=== PATIENT | male | born 1945 | race Caucasian/White ===

== ENCOUNTER 2017-11-12 10:30 | Observation (INO) | payer MEDICARE ==
[2017-11-12 11:10] LABS: INR-International Normal Ratio 1.1; PTT 36.2 SEC (22.9-36.1); Prothrombin Time 14.5 SEC (12.0-14.7)
[2017-11-12 11:14] LABS: #Eosinphils 0.1 thou/uL (0.0-0.7); #Lymphocytes 1.9 thou/uL (1.20-3.40); #Monocytes 0.6 thou/uL (0.11-0.59); #Neutrophils 5.8 thou/uL (1.40-6.50); %Basophils 0.6 % (0.0-1.0); %Eosinophils 1.5 % (0.0-10.0); %Lymphocytes 22.8 % (21.0-51.0); %Monocytes 6.6 % (0.0-10.0); %Neutrophils 68.6 % (42.0-75.0); Hemoglobin 13.8 g/dL (14.0-18.0); Mean Corpuscular HGB CONC 32.7 g/dL (32.0-36.0); Mean Corpuscular Hemoglobin 31.1 pg (27.0-31.0); Mean Corpuscular Volume 95.2 fl (80.0-94.0); Mean Platelet Volume 7.5 fL (7.4-10.4); Platelet Count 155 thou/uL (130-400); RBC Distribution Width 12.5 % (11.5-14.5); Red Blood Cell (RBC) Count 4.42 mill/uL (4.70-6.10); White Blood Cell (WBC) Count 8.4 thou/uL (4.8-10.8)
--- NOTE | 2017-11-12 11:14 | CT ---
HEAD CT WITHOUT CONTRAST: DATE: 11/12/17. COMPARISON: 08/01/17. HISTORY: Altered mental status, history of dementia, inability to talk and to walk. TECHNIQUE: Serial axial CT imaging at 5 mm intervals from vertex through the skull base without contrast. FINDINGS: The imaged paranasal sinuses and mastoid air cells appear well aerated. There is no displaced calvar ial fracture, intracranial hemorrhage, midline shift, or mass effect seen. IMPRESSION: No intracranial hemorrhage. Results called to Dr. Rajput 10:39 a.m. 11/12/17. CODE CR POS: [facility]
[2017-11-12 11:20] LABS: CKMB 3.9 ng/mL (0-6.6); Troponin I Less than 0.010 ng/mL (< 0.028)
--- NOTE | 2017-11-12 11:25 | RAD ---
FRONTAL RADIOGRAPH OF CHEST PORTABLE SEMIUPRIGHT: Date: 11/12/17 COMPARISON: None. HISTORY: Altered mental status. FINDINGS: No pneumothorax, pleural fluid, focal consolidation, or alveolar edema. Heart and mediastinal contour s are grossly unremarkable. Mild pulmonary vascular congestion noted. IMPRESSION: No focal consolidation or alveolar edema. POS: [facility]
[2017-11-12 11:26] LABS: Bilirubin Negative (Negative); Blood, Urine Negative (Negative); Glucose, Urine (Dipstick) Negative (Negative); Leukocyte Negative (Negative); Nitrite Negative (Negative); Protein, Urine (Dipstick) Negative (Neg-Trace)
[2017-11-12 11:27] LABS: Clarity Clear (Clear)
[2017-11-12] MEDS ORDERED: Aspirin 300 MG Suppository ONE (12:07)
[2017-11-12 12:30] LABS: ALT (SGPT) 14 U/L (8-55); AST (SGOT) 28 U/L (5-34); Alkaline Phosphatase 91 U/L (40-150); Anion Gap 13 mmol/L (10-20); BUN (Urea Nitrogen) 15 mg/dL (8.4-25.7); Bilirubin, Total 1.6 mg/dL (0.2-1.2); Calc. Creatinine Clearance 0 mL/min (70-130); Calcium 9.3 mg/dL (7.8-10.44); Carbon Dioxide 25 mmol/L (23-31); Chloride 105 mmol/L (98-107); Estimated GFR-MDRD 73; Globulin 2.8 g/dL (2.4-3.5); Glucose 105 mg/dL (83-110); Potassium 4.3 mmol/L (3.5-5.1); Protein, Total 6.8 g/dL (5.8-8.1); Sodium 139 mmol/L (136-145)
[2017-11-12 14:35] LABS: Troponin I Less than 0.010 ng/mL (< 0.028)
[2017-11-12] MEDS ORDERED: hydrALAZINE 20 MG/ML VIAL SLOW IVP PRN (14:55)
[2017-11-12] MEDS ORDERED: Enalaprilat Dihydrate 1.25 MG/ML VIAL SLOW IVP PRN (14:55)
[2017-11-12 15:34] LABS: Cardiac Risk 3.8 (Less than 4.5)
[2017-11-12 15:48] VITALS: BMI 30.5
[2017-11-12] MEDS ORDERED: Acetaminophen 650 MG Suppository PR PRN (16:29)
[2017-11-12] MEDS ORDERED: Calcium Carbonate 500 MG ChewTAB PO PRN (16:29)
[2017-11-12] MEDS ORDERED: Bisacodyl 5 MG TAB PO PRN (16:29)
[2017-11-12] MEDS ORDERED: Senokot 8.6 MG TAB PO PRN (16:29)
[2017-11-12] MEDS ORDERED: Mag-Al 1200 mg/1200 mg/30 ML UDCUP PO PRN (16:29)
[2017-11-12] MEDS ORDERED: Ondansetron HCl/PF 4 MG/2 ML Vial IVP PRN (16:29)
[2017-11-12] MEDS ORDERED: Acetaminophen 325 MG TAB PO PRN (16:29)
[2017-11-12] MEDS ORDERED: Dextrose 50% Abboject 50 ML SYRINGE SLOW IVP PRN (16:32)
[2017-11-12] MEDS ORDERED: HumaLOG 300 UNITS/3 ML VIAL SC PRN ×2 (16:32)
[2017-11-12] MEDS ORDERED: Dextrose 5% in Water 1,000 ML IV PRN (16:32)
--- NOTE | 2017-11-12 17:18 | ULT ---
CAROTID ULTRASOUND WITH SCHILLING SCALE AND DOPPLER DUPLEX COLOR FLOW IMAGING SPECTRAL ANALYSIS PERFORMED: CLINICAL INDICATION: TIA. FINDINGS: There is mild degree of mild scattered atherosclerotic calcification of the carotid arteries. PEAK SYSTOLIC VELOCITY (CM/S): Right CCA 55 Left CCA 57 Right ICA 39 Left ICA 48 There is antegrade bilateral directional flow within the visualized vertebral arteries. IMPRESSION: 1. No hemodynamically significant stenosis of the right internal carotid artery. 2. No hemodynamically significant stenosis of the left internal carotid artery. POS: [facility]
[2017-11-12 17:39] LABS: Troponin I Less than 0.010 ng/mL (< 0.028)
--- NOTE | 2017-11-12 17:48 | MRI ---
BRAIN MRI NONCONTRAST: Date: 11/12/17 CLINICAL HISTORY: CVA, altered mental status. FINDINGS: There is prominent patient motion throughout the exam, which distorts anatomy and limits the assessme nt. There is no discrete evidence for acute territorial infarction. There is mild prominence of the v entricular system, along with mild global atrophy. Minimal chronic microvascular ischemic disease is present involving cerebral white matter. IMPRESSION: Exam is limited by patient motion. There is no evidence of acute infarction or mass effect. POS: [facility]
--- NOTE | 2017-11-12 20:01 | CON ---
DATE OF CONSULTATION: 11/12/2017 REFERRING PHYSICIAN: Hospitalist Service. Mr. Agudelo is a 72-year-old man who is a patient of Dr. Gordon's for management of Parkinson's joseluis ia complex. He has had symptoms dating back around 7-8 years. His physical status steadily deterior ated. He is getting around with a walker, but is unstable on his feet. His assists in almost a ll his daily activities. He has had intermittent hallucinations. He does not tolerate Parkinson med ication very well. He apparently has been having some restless sleep, talking constantly through the night. His decided to give him some Nyquil last night. When she tried to get him up this morn ing, he would not awaken. She checked his vital signs, which were normal. His blood sugar was 122. She called EMS and he was brought into the hospital. His lab work was all unremarkable. CT scan of the brain as well as a followup MRI of the brain were both unremarkable. His vital signs have been stable and he has been afebrile. He is awake and conversant now. PHYSICAL EXAMINATION: He is awake and appropriate. He has a masked facies. He follow commands appr opriately. He has a rest tremor in the left hand more than the right. His rapid alternating movemen ts are mildly slowed. His tone is a bit increased with some cogwheel rigidity. Gait was not tested. SUMMARY: Mr. Agudelo may have had a reaction to the Nyquil. He seems to be back to his baseline. I would suggest that he use Klonopin 0.5 mg at bedtime for his REM behavior activity. I will be happ y to follow up with him as an outpatient.
[2017-11-13 05:24] LABS: #Basophils 0.1 thou/uL (0.0-0.2); #Eosinphils 0.2 thou/uL (0.0-0.7); #Lymphocytes 1.9 thou/uL (1.20-3.40); #Monocytes 0.7 thou/uL (0.11-0.59); #Neutrophils 5.1 thou/uL (1.40-6.50); %Basophils 0.9 % (0.0-1.0); %Eosinophils 2.5 % (0.0-10.0); %Lymphocytes 23.5 % (21.0-51.0); %Monocytes 8.6 % (0.0-10.0); %Neutrophils 64.5 % (42.0-75.0); Hemoglobin 13.1 g/dL (14.0-18.0); Mean Corpuscular HGB CONC 33.6 g/dL (32.0-36.0); Mean Corpuscular Hemoglobin 31.6 pg (27.0-31.0); Mean Corpuscular Volume 93.9 fl (80.0-94.0); Mean Platelet Volume 7.3 fL (7.4-10.4); Platelet Count 147 thou/uL (130-400); RBC Distribution Width 12.3 % (11.5-14.5); Red Blood Cell (RBC) Count 4.15 mill/uL (4.70-6.10); White Blood Cell (WBC) Count 7.9 thou/uL (4.8-10.8)
[2017-11-13 06:10] LABS: Anion Gap 9 mmol/L (10-20); BUN (Urea Nitrogen) 17 mg/dL (8.4-25.7); Calc. Creatinine Clearance 110 mL/min (70-130); Calcium 9.2 mg/dL (7.8-10.44); Carbon Dioxide 28 mmol/L (23-31); Chloride 104 mmol/L (98-107); Estimated GFR-MDRD Greater than 90; Glucose 91 mg/dL (83-110); Potassium 3.9 mmol/L (3.5-5.1); Sodium 137 mmol/L (136-145)
--- NOTE | 2017-11-13 07:26 | HP ---
DATE OF ADMISSION: 11/12/2017 PRIMARY CARE PHYSICIAN: Dr. Gustavo Campbell, [place]. CHIEF COMPLAINT: Altered mental status. HISTORY OF PRESENT ILLNESS: Mr. Agudelo is a very pleasant male with past medical history of advanc ed Parkinson's disease as well as dementia and diabetes and hypothyroidism, who presented to the ER w ith the above-mentioned complaint. History is mainly obtained by his present in the room as the patient is very somnolent at this time but not able to provide any history. He also has advanced de mentia. According to his , he has been acting kind of normal up until this morning. She woke him up this morning, then he stopped speaking and kind of became less responsive for her. She called the EMS, tania hernandez activated to sepsis versus stroke alert. He was physically normal with normal vital signs, but he was brought to the emergency room for further evaluation. There are no recent illnesses according t o the . He has been hallucinating a lot and she feels that his dementia is getting worse. No re cent changes in medications have been made. She denies any fever, chills, or cough that she has noti stephy. Upon presentation to the emergency room, his blood pressure was high at 198/75. He was not able to t daisy his medications this morning because he was somnolent. Otherwise, his initial workup including s sandra chemistries, CT scan of the brain and a chest x-ray and . His EKG did show right bundle branch block, but his urinalysis and rest of the workup was normal. He is now being admitted for further workup and rule out CVA. According to the ER physician, he was qu ite unresponsive for her, but was maintaining his airway. Since coming upstairs on the floor, he is more awake and vivid and is following commands. PAST MEDICAL HISTORY: 1. Diabetes mellitus, type 2. 2. Hypertension. 3. Hypothyroidism. 4. Parkinson's disease. 5. Dyslipidemia. 6. Orthostatic hypotension. 7. Sleep apnea. 8. Dementia. 9. Chronic low back pain. 10. Chronic anemia. 11. Diabetic neuropathy. 12. History of TB, status post treatment. PAST SURGICAL HISTORY: Laminectomy. FAMILY HISTORY: Positive for coronary artery disease and diabetes. SOCIAL HISTORY: He is and lives with his . No history of drug, tobacco, or alcohol abus e. ALLERGIES: Include TORADOL. CURRENT HOME MEDICATIONS: Not updated as yet. According to the ER record, he takes the following me dications, Azilect 0.5 mg daily, fludrocortisone 0.1 mg daily, fluoxetine 20 mg daily, levothyroxine 137 mcg daily, midodrine 5 mg b.i.d., Namenda XR 28 mg daily, aspirin 81 mg daily. REVIEW OF SYSTEMS: It is unable to obtain at this time, because of patient's somnolence and some con fusion and advanced dementia, mainly. Overall, he says that he is "feeling okay." LABORATORY EXAMINATION: CBC: Hemoglobin 13.8, otherwise unremarkable. PT, PTT, INR within normal l imits. Serum chemistries unremarkable except a total bilirubin of 1.6, troponin less than 0.010 x2, CK-MB normal. Blood sugar 105. Lipid panel normal. Urinalysis shows some urobilinogen, otherwise u nremarkable. IMAGIN. Chest x-ray, by my review, has no evidence to suggest pleural effusion, edema, or infiltrate. 2. CT scan of the brain, by my review, is negative for any intracranial hemorrhage or acute infarcti on. PHYSICAL EXAMINATION: MOST RECENT VITAL SIGNS: Temperature 98, pulse of 59, respirations 16, saturating 100% on room air, blood pressure 161/76. GENERAL: No acute distress. He is awake, but falls back asleep easily, but easily awoken up as well . He is oriented to self and place at the very least. HEENT EXAMINATION: Mucous membranes is slightly dry. No oropharyngeal exudate or erythema. Head is normocephalic, atraumatic. Pupils equal and reactive to light and accommodation. Extraocular movem ent intact. NECK: Supple without any lymphadenopathy, JVD, or bruit. CHEST: Clear to auscultation without any wheezing, rales, or rhonchi. CARDIOVASCULAR: Rate and rhythm are regular. He has a loud 2/5 systolic murmur at the left sternal border. ABDOMEN: Soft, nontender, nondistended. EXTREMITIES: Free of any cyanosis, clubbing, or edema. NEUROLOGICAL EXAMINATION: Somewhat limited, because of advanced Parkinson's and dementia, but the pa brittany is able to follow simple commands. No obvious facial droop. Speech is not dysarthric. He is oriented to self and place. He is able to tell me that he is in the hospital and is able to tell me his full name. He is moving all 4 extremities against gravity by himself. So, muscle strength is at least 4/5 bilaterally. SKIN: Free of any rashes or bruises. They are still warm and dry. PSYCHIATRIC: Normal affect. IMPRESSION AND PLAN: 1. Altered mental status. No clear etiology is evident at this time. He has no metabolic abnormali ties and there are no sign and symptoms of sepsis as well. Transient ischemic attact will be ruled o ut. We will obtain a stroke team workup and go ahead and order a carotid Doppler as well as a transt horacic echocardiogram and MRI of the brain. We will also request consultation with Neurology for fu rther recommendations. The patient has received aspirin in the emergency room, and we will continue with full-dose aspirin and add statin at this time as well. His lipid panel is unremarkable. Furthe r management will depend upon the results of various studies. He will be monitored on the stroke [facility] with frequent neuro checks. 2. Uncontrolled hypertension. His blood pressure is under better control. We will restart his home medications once confirmed. Meanwhile, we will continue him on p.r.n. medications with a slightly r elaxed parameters to maintain cerebral perfusion pressure until CVA is ruled out. 3. Diabetes mellitus. We will start him on insulin sliding scale with frequent Accu-Cheks. 4. Advanced Parkinson's. He will continue to follow up with Dr. Gordon as an outpatient. Restart mena e medications once confirmed. 5. History of hypothyroidism. We will check a TSH and restart his home medications once the dose is confirmed. 6. History of Alzheimer dementia. I am not sure if he has Alzheimer's versus dementia associated wi th Parkinson's disease. Nevertheless, he will be on fall and aspiration precautions with a bed alarm . 7. Code status: DO NOT RESUSCITATE or intubate according to his as expressed by the patient lila araya. She has paperwork at home. 8. Deep venous thrombosis and gastrointestinal prophylaxis. 9. OT, PT, and speech therapist will be consulted as well. DISPOSITION: Mr. Agudelo is currently being admitted to stroke floor under observation status to ru le out AMS or any other causes of altered mental status. Further management will depend upon his cli nical course.
[2017-11-13] MEDS ORDERED: Fludrocortisone Acetate 0.1 MG TAB PO SCH (09:00)
[2017-11-13] MEDS ORDERED: Non-Formulary Item 1 EACH (Fluoxetine Hcl [Fluoxetine Hcl] 20 MG) PO SCH (09:00)
[2017-11-13] MEDS ORDERED: RASAGILINE MESYLATE PO SCH (09:00)
[2017-11-13] MEDS ORDERED: MIDODRINE HCL 5 MG PO SCH (09:00)
[2017-11-13] MEDS ORDERED: SAW PALMETTO 160 MG PO SCH (09:00)
[2017-11-13] MEDS ORDERED: Levothyroxine 175 MCG TAB PO SCH (09:00)
[2017-11-13] MEDS ORDERED: MEMANTINE HCL 28 MG PO SCH (09:00)
[2017-11-13] MEDS ORDERED: Midodrine HCl 5 MG TAB PO SCH (09:00)
[2017-11-13] MEDS ORDERED: Niacin 500 MG TAB PO SCH (09:45)
[2017-11-13] MEDS: Enoxaparin Sodium 40 MG/0.4 ML SYRINGE SC SCH (10:00)
[2017-11-13] MEDS: Aspirin 325 mg Enteric Coated Tablet PO SCH (10:00)
[2017-11-13] MEDS: FLUoxetine HCl 20 MG CAP PO SCH (10:00)
--- NOTE | 2017-11-13 13:45 | PDOC.PN ---
- Subjective Encounter Start Date: 11/13/17 Encounter Start Time: 13:43 Subjective: pt seen and examined. updated about all results -: feels well. no new complaints -: at baseline per - Objective Resuscitation Status: Resuscitation Status DNR:Do Not Resuscitate MAR Reviewed: Yes Vital Signs & Weight: Vital Signs (12 hours) Temp Pulse Pulse Pulse Pulse Resp BP 11/13/17 12:00 98 F 62 16 11/13/17 10:26 59 L 77 67 143/86 H 11/13/17 09:24 98.8 F 65 16 11/13/17 08:59 98.8 F 65 16 11/13/17 03:58 97.5 F L 86 16 BP BP BP Pulse Ox 11/13/17 12:00 159/85 H 99 11/13/17 10:26 105/59 L 155/75 H 11/13/17 09:24 137/67 95 11/13/17 08:59 11/13/17 03:58 142/73 H 96 Weight Weight 213 lb I&O: 11/12/17 11/13/17 11/14/17 06:59 06:59 06:59 Intake Total 300 Balance 300 Result Diagrams: 11/13/17 05:12 11/13/17 05:12 Additional Labs: Accuchecks 11/13/17 11/12/17 11/12/17 05:13 21:58 17:35 POC Glucose 89 117 H 89 Radiology Reviewed by me: Yes (MRI-no ac infarct) EKG Reviewed by me: Yes (NSR on tele) Phys Exam - Physical Examination Constitutional: NAD sitting up in bed,awake, HEENT: PERRLA, moist MMs, sclera anicteric, oral pharynx no lesions Neck: no nodes, no JVD, supple, full ROM Respiratory: no wheezing, no rales, no rhonchi, clear to auscultation bilateral Cardiovascular: RRR, no significant murmur, no rub Gastrointestinal: soft, non-tender, no distention, positive bowel sounds Musculoskeletal: no edema, pulses present Neurological: non-focal, moves all 4 limbs Psychiatric: normal affect orineted to self and place Skin: no rash Dx/Plan (1) Altered mental status Code(s): R41.82 - ALTERED MENTAL STATUS, UNSPECIFIED Status: Acute Comment: josé TIA (2) TIA (transient ischemic attack) Status: Acute (3) Alzheimer disease Code(s): G30.9 - ALZHEIMER'S DISEASE, UNSPECIFIED; F02.80 - DEMENTIA IN OTH DISEASES CLASSD ELSWHR W/O BEHAVRL DISTURB Status: Chronic (4) Diabetes Mellitus Type 2 in Nonobese Code(s): E11.9 - TYPE 2 DIABETES MELLITUS WITHOUT COMPLICATIONS Status: Chronic (5) Hypothyroidism Code(s): E03.9 - HYPOTHYROIDISM, UNSPECIFIED Status: Chronic (6) Labile hypertension Code(s): I10 - ESSENTIAL (PRIMARY) HYPERTENSION Status: Chronic (7) Parkinson's disease Code(s): G20 - PARKINSON'S DISEASE Status: Chronic - Plan PT/OT, DVT proph w/SCDs increase ASA to 325 daily.pt intolerant to Statin. -: cont home meds as below -: BP higher.Stop Florinef -: PT RECOMMENDED REHAB.ORDERS PLACED.DC DELAYED d/t THIS -: Cleared by [facility] for regular diet.DC IVF * .add qhs klonopin per neuro recs Review of Systems - Review of Systems Other: unable to obtain due to advanced dementia - Medications/Allergies Allergies/Adverse Reactions: Allergies Allergy/AdvReac Type Severity Reaction Status Date / Time ketorolac tromethamine Allergy Anxiety Verified 07/14/14 10:47 [From Toradol] fentanyl AdvReac Verified 07/26/14 18:07 Medications: Current Medications Acetaminophen (Tylenol) 650 mg PO Q4H PRN PRN Reason: Headache/Fever or Pain Acetaminophen (Tylenol) 650 mg [place] Q4H PRN PRN Reason: Headache/Fever or Pain Al Hydroxide/Mg Hydroxide (Maalox) 30 ml PO Q6H PRN PRN Reason: Heartburn or Indigestion Aspirin (Ecotrin) 325 mg PO DAILY [facility] Last Admin: 11/13/17 10:00 Dose: 325 mg Bisacodyl (Dulcolax) 10 mg PO DAILYPRN PRN PRN Reason: Constipation Calcium Carbonate (Tums) 1,000 mg PO Q4H PRN PRN Reason: Heartburn or Indigestion Dextrose/Water (Dextrose 50%) 25 gm SLOW IVP PRN PRN PRN Reason: Hypoglycemia Enalaprilat (Vasotec) 1.25 mg SLOW IVP Q6H PRN PRN Reason: SBP>170 Enoxaparin Sodium (Lovenox) 40 mg SC 0900 [facility] Last Admin: 11/13/17 10:00 Dose: 40 mg Fluoxetine HCl (Prozac) 20 mg PO DAILY [facility] Last Admin: 11/13/17 10:00 Dose: 20 mg Glucagon (Glucagon) 1 mg IM PRN PRN PRN Reason: Hypoglycemia Hydralazine HCl (Apresoline) 10 mg SLOW IVP Q4H PRN PRN Reason: SBP>170 Dextrose/Water (D5w) 1,000 mls @ 0 mls/hr IV .Q0M PRN; As Directed PRN Reason: Hypoglycemia Insulin Human Lispro (Humalog) 0 units SC .MODERATE SLIDING SC PRN PRN Reason: Moderate Correctional Scale Insulin Human Lispro (Humalog) 0 units SC .BEDTIME SLIDING SC PRN PRN Reason: Bedtime Correctional Scale Levothyroxine Sodium (Synthroid) 112 mcg PO 0600 [facility] Levothyroxine Sodium (Synthroid) 25 mcg PO 0600 [facility] Memantine (Namenda) 10 mg PO BID [facility] Midodrine (Proamatine) 5 mg PO BID [facility] Last Admin: 11/13/17 10:00 Dose: 5 mg Niacin (Niacin) 250 mg PO DAILY [facility] Ondansetron HCl (Zofran) 4 mg IVP Q6H PRN PRN Reason: Nausea/Vomiting [[place]] 160 (Mg)) 0 each PO DAILY [facility] Rasagiline Mesylate ([Azilect] 1 Tab) 0 each PO DAILY [facility] Senna (Senokot) 2 tab PO HSPRN PRN PRN Reason: Constipation Sodium Chloride (Flush - Normal Saline) 10 ml IVF Q12HR [facility] Sodium Chloride (Flush - Normal Saline) 10 ml IVF PRN PRN PRN Reason: Saline Flush
[2017-11-14] MEDS: Levothyroxine Sodium 25 MCG TAB PO SCH (05:13)
[2017-11-14] MEDS: Levothyroxine Sodium 112 MCG TAB PO SCH (05:14)
[2017-11-14] MEDS: Enoxaparin Sodium 40 MG/0.4 ML SYRINGE SC SCH (09:45)
[2017-11-14] MEDS: Aspirin 325 mg Enteric Coated Tablet PO SCH (09:46)
[2017-11-14] MEDS: Amlodipine 5 MG TAB PO SCH (09:46)
[2017-11-14] MEDS: Niacin 500 MG TAB PO SCH (09:46)
[2017-11-14] MEDS: FLUoxetine HCl 20 MG CAP PO SCH (09:47)
--- NOTE | 2017-11-14 14:52 | PDOC.PN ---
- Subjective Encounter Start Date: 11/14/17 Encounter Start Time: 14:50 - Objective Resuscitation Status: Resuscitation Status DNR:Do Not Resuscitate Vital Signs & Weight: Vital Signs (12 hours) Temp Pulse Pulse Resp BP BP Pulse Ox 11/14/17 11:51 98.7 F 71 18 112/57 L 98 11/14/17 09:46 63 11/14/17 08:45 98.9 F 63 18 11/14/17 08:40 66 151/68 H 11/14/17 07:29 98.9 F 63 18 156/75 H 98 11/14/17 04:00 97.8 F 61 18 154/71 H 97 Weight Admit Weight 213 lb Weight 213 lb I&O: 11/13/17 11/14/17 11/15/17 06:59 06:59 06:59 Intake Total 300 Balance 300 Result Diagrams: 11/13/17 05:12 11/13/17 05:12 Additional Labs: Accuchecks 11/14/17 11/14/17 11/13/17 10:51 05:21 20:32 POC Glucose 146 H 98 153 H 11/13/17 16:35 POC Glucose 111 H Phys Exam - Physical Examination Constitutional: NAD answers some questions appropriately HEENT: PERRLA, moist MMs, sclera anicteric, oral pharynx no lesions Neck: no nodes, no JVD, supple, full ROM Respiratory: no wheezing, no rales, no rhonchi, clear to auscultation bilateral Cardiovascular: RRR, no significant murmur, no rub Gastrointestinal: soft, non-tender, no distention, positive bowel sounds Musculoskeletal: no edema, pulses present Neurological: non-focal, normal sensation, moves all 4 limbs Psychiatric: normal affect Skin: no rash Dx/Plan (1) TIA (transient ischemic attack) Status: Acute (2) Altered mental status Code(s): R41.82 - ALTERED MENTAL STATUS, UNSPECIFIED Status: Resolved Comment: josé TIA (3) Alzheimer disease Code(s): G30.9 - ALZHEIMER'S DISEASE, UNSPECIFIED; F02.80 - DEMENTIA IN OTH DISEASES CLASSD ELSWHR W/O BEHAVRL DISTURB Status: Chronic (4) Diabetes Mellitus Type 2 in Nonobese Code(s): E11.9 - TYPE 2 DIABETES MELLITUS WITHOUT COMPLICATIONS Status: Chronic (5) Hypothyroidism Code(s): E03.9 - HYPOTHYROIDISM, UNSPECIFIED Status: Chronic (6) Labile hypertension Code(s): I10 - ESSENTIAL (PRIMARY) HYPERTENSION Status: Chronic (7) Parkinson's disease Code(s): G20 - PARKINSON'S DISEASE Status: Chronic - Plan DVT proph w/SCDs BP high.stop midodrine.Florinef stopped yesterday -: add low dose amlodipine and titrate as needed -: cont ASA .statin intolerant. -: awaiting placement.HD stable -: add hs klonopin for hallucinations and wakefullness at night * . Review of Systems - Review of Systems Constitutional: negative: fever, chills, sweats, weakness, malaise, other Respiratory: negative: Cough, Dry, Shortness of Breath, Hemoptysis, SOB with Excertion, Pleuritic Pain, Sputum, Wheezing Cardiovascular: negative: chest pain, palpitations, orthopnea, paroxysmal nocturnal dyspnea, edema, light headedness, other Gastrointestinal: negative: Nausea, Vomiting, Abdominal Pain, Diarrhea, Constipation, Melena, Hematochezia, Other Genitourinary: negative: Dysuria, Frequency, Incontinence, Hematuria, Retention , Other Other: limited ROS due to dementia - Medications/Allergies Allergies/Adverse Reactions: Allergies Allergy/AdvReac Type Severity Reaction Status Date / Time ketorolac tromethamine Allergy Anxiety Verified 07/14/14 10:47 [From Toradol] fentanyl AdvReac Verified 07/26/14 18:07 Medications: Current Medications Acetaminophen (Tylenol) 650 mg PO Q4H PRN PRN Reason: Headache/Fever or Pain Acetaminophen (Tylenol) 650 mg IN Q4H PRN PRN Reason: Headache/Fever or Pain Al Hydroxide/Mg Hydroxide (Maalox) 30 ml PO Q6H PRN PRN Reason: Heartburn or Indigestion Amlodipine Besylate (Norvasc) 2.5 mg PO DAILY [facility] Last Admin: 11/14/17 09:46 Dose: 2.5 mg Aspirin (Ecotrin) 325 mg PO DAILY [facility] Last Admin: 11/14/17 09:46 Dose: 325 mg Bisacodyl (Dulcolax) 10 mg PO DAILYPRN PRN PRN Reason: Constipation Calcium Carbonate (Tums) 1,000 mg PO Q4H PRN PRN Reason: Heartburn or Indigestion Dextrose/Water (Dextrose 50%) 25 gm SLOW IVP PRN PRN PRN Reason: Hypoglycemia Enalaprilat (Vasotec) 1.25 mg SLOW IVP Q6H PRN PRN Reason: SBP>170 Enoxaparin Sodium (Lovenox) 40 mg SC 0900 [facility] Last Admin: 11/14/17 09:45 Dose: 40 mg Fluoxetine HCl (Prozac) 20 mg PO DAILY [facility] Last Admin: 11/14/17 09:47 Dose: 20 mg Glucagon (Glucagon) 1 mg IM PRN PRN PRN Reason: Hypoglycemia Hydralazine HCl (Apresoline) 10 mg SLOW IVP Q4H PRN PRN Reason: SBP>170 Dextrose/Water (D5w) 1,000 mls @ 0 mls/hr IV .Q0M PRN; As Directed PRN Reason: Hypoglycemia Insulin Human Lispro (Humalog) 0 units SC .MODERATE SLIDING SC PRN PRN Reason: Moderate Correctional Scale Insulin Human Lispro (Humalog) 0 units SC .BEDTIME SLIDING SC PRN PRN Reason: Bedtime Correctional Scale Levothyroxine Sodium (Synthroid) 112 mcg PO 0600 [facility] Last Admin: 11/14/17 05:14 Dose: 112 mcg Levothyroxine Sodium (Synthroid) 25 mcg PO 0600 [facility] Last Admin: 11/14/17 05:13 Dose: 25 mcg Memantine (Namenda) 10 mg PO BID [facility] Last Admin: 11/14/17 09:46 Dose: 10 mg Niacin (Niacin) 250 mg PO DAILY [facility] Last Admin: 11/14/17 09:46 Dose: 250 mg Ondansetron HCl (Zofran) 4 mg IVP Q6H PRN PRN Reason: Nausea/Vomiting [Saw [place]] 160 (Mg)) 0 each PO DAILY [facility] Rasagiline Mesylate ([Azilect] 1 Tab) 0 each PO DAILY [facility] Senna (Senokot) 2 tab PO HSPRN PRN PRN Reason: Constipation Sodium Chloride (Flush - Normal Saline) 10 ml IVF Q12HR [facility] Last Admin: 11/14/17 09:47 Dose: 10 ml Sodium Chloride (Flush - Normal Saline) 10 ml IVF PRN PRN PRN Reason: Saline Flush
[2017-11-14] MEDS: clonazePAM 0.5 MG TAB PO SCH (21:13)
[2017-11-15] MEDS: Levothyroxine Sodium 25 MCG TAB PO SCH (06:05)
[2017-11-15] MEDS: Levothyroxine Sodium 112 MCG TAB PO SCH (06:05)
--- NOTE | 2017-11-15 07:20 | PDOC.PN ---
- Subjective Encounter Start Date: 11/15/17 Encounter Start Time: 08:45 Subjective: Patient somnolent this morning, not communicative. No events overnight. - Objective Resuscitation Status: Resuscitation Status DNR:Do Not Resuscitate MAR Reviewed: Yes Vital Signs & Weight: Vital Signs (12 hours) Temp Pulse Resp BP Pulse Ox 11/15/17 04:28 98.2 F 62 20 118/55 L 98 11/15/17 00:12 97.8 F 64 14 106/53 L 95 11/14/17 21:02 98.5 F 70 18 118/78 98 Weight Admit Weight 213 lb Weight 213 lb Result Diagrams: 11/13/17 05:12 11/13/17 05:12 Additional Labs: Accuchecks 11/15/17 11/14/17 11/14/17 04:37 22:15 16:53 POC Glucose 107 111 H 110 11/14/17 10:51 POC Glucose 146 H Phys Exam - Physical Examination Constitutional: NAD HEENT: moist MMs Respiratory: no wheezing, no rales, no rhonchi Cardiovascular: RRR 3/6 holosystolic murmur Gastrointestinal: soft, non-tender, positive bowel sounds Neurological: non-focal Deviation from normal: somnolent, will make grunting noises on stimulation but won't open eyes Dx/Plan (1) TIA (transient ischemic attack) Status: Acute (2) Altered mental status Code(s): R41.82 - ALTERED MENTAL STATUS, UNSPECIFIED Status: Resolved Comment: josé TIA, back to baseline dementia per , more sleepy this AM, will need to see how he does over the day (3) Alzheimer disease Code(s): G30.9 - ALZHEIMER'S DISEASE, UNSPECIFIED; F02.80 - DEMENTIA IN OTH DISEASES CLASSD ELSWHR W/O BEHAVRL DISTURB Status: Chronic (4) Diabetes Mellitus Type 2 in Nonobese Code(s): E11.9 - TYPE 2 DIABETES MELLITUS WITHOUT COMPLICATIONS Status: Chronic (5) Hypothyroidism Code(s): E03.9 - HYPOTHYROIDISM, UNSPECIFIED Status: Chronic (6) Labile hypertension Code(s): I10 - ESSENTIAL (PRIMARY) HYPERTENSION Status: Chronic Comment: decent control (7) Parkinson's disease Code(s): G20 - PARKINSON'S DISEASE Status: Chronic - Plan cont current plan of care, PT/OT to rehab when approved, if denied home vs. SNF * . - Discharge Day Encounter end time: 09:00
[2017-11-15] MEDS: Enoxaparin Sodium 40 MG/0.4 ML SYRINGE SC SCH (09:36)
[2017-11-15 12:34] LABS: #Basophils 0.1 thou/uL (0.0-0.2); #Eosinphils 0.1 thou/uL (0.0-0.7); #Lymphocytes 1.5 thou/uL (1.20-3.40); #Monocytes 0.8 thou/uL (0.11-0.59); #Neutrophils 7.5 thou/uL (1.40-6.50); %Basophils 0.5 % (0.0-1.0); %Eosinophils 1.1 % (0.0-10.0); %Lymphocytes 15.1 % (21.0-51.0); %Monocytes 8.4 % (0.0-10.0); %Neutrophils 74.9 % (42.0-75.0); Hemoglobin 13.4 g/dL (14.0-18.0); Mean Corpuscular HGB CONC 33.7 g/dL (32.0-36.0); Mean Corpuscular Hemoglobin 31.9 pg (27.0-31.0); Mean Corpuscular Volume 94.6 fl (80.0-94.0); Mean Platelet Volume 7.2 fL (7.4-10.4); Platelet Count 141 thou/uL (130-400); RBC Distribution Width 12.6 % (11.5-14.5); Red Blood Cell (RBC) Count 4.19 mill/uL (4.70-6.10)
--- NOTE | 2017-11-15 12:50 | RAD ---
PORTABLE CHEST: Date: 11-15-17 Provided Clinical History: Altered mental status. Comparison: 11-12-17 FINDINGS: Cardiac and mediastinal silhouette is unchanged in appearance. Lungs appear clear. No pleural fluid o r pneumothorax apparent. IMPRESSION: No evidence for an acute cardiopulmonary process. POS: [facility]
[2017-11-15 12:55] LABS: Bilirubin Negative (Negative); Blood, Urine Large (Negative); Clarity CLOUDY (Clear); Glucose, Urine (Dipstick) Negative (Negative); Leukocyte Large (Negative); Nitrite Positive (Negative); Protein, Urine (Dipstick) 30 mg/dL (Neg-Trace); Specific Gravity, Urine 1.021 (1.002-1.036); pH, Urine 6.5 (5.0-9.0)
[2017-11-15 12:56] LABS: Anion Gap 10 mmol/L (10-20); BUN (Urea Nitrogen) 21 mg/dL (8.4-25.7); Calc. Creatinine Clearance 92 mL/min (70-130); Calcium 9.2 mg/dL (7.8-10.44); Carbon Dioxide 26 mmol/L (23-31); Chloride 104 mmol/L (98-107); Estimated GFR-MDRD 74; Glucose 97 mg/dL (83-110); Sodium 136 mmol/L (136-145)
[2017-11-15 12:57] LABS: Bacteria/HPF 4+ HPF (None Seen); Hyaline Casts/LPF 4-6 HYALINE CAST LPF (0-3 Hyaline); Pathc Cast-AUWi Flag 1.54 (0-2.49); RBC/HPF GREATER THAN 50-TNTC HPF (0-3); Squamous Epithelial 0-3 HPF (0-3)
[2017-11-15] MEDS: Amlodipine 5 MG TAB PO SCH (13:25)
[2017-11-15] MEDS: Aspirin 325 mg Enteric Coated Tablet PO SCH (13:25)
[2017-11-15] MEDS: FLUoxetine HCl 20 MG CAP PO SCH (13:25)
[2017-11-15] MEDS: Niacin 500 MG TAB PO SCH (13:26)
[2017-11-15] MEDS: Ciprofloxacin 500 MG TAB PO SCH (20:03)
[2017-11-15] MEDS: clonazePAM 0.5 MG TAB PO SCH (20:04)
--- NOTE | 2017-11-15 22:17 | EKG ---
Test Reason : Blood Pressure : / mmHG Vent. Rate : 062 BPM Atrial Rate : 062 BPM P-R Int : 136 ms QRS Dur : 116 ms QT Int : 464 ms P-R-T Axes : 030 -54 041 degrees QTc Int : 470 ms Normal sinus rhythm Left anterior fascicular block Left ventricular hypertrophy with QRS widening Abnormal ECG When compared with ECG of 12-NOV-2017 10:48, (Unconfirmed) Incomplete right bundle branch block is no longer Present Confirmed by GABINO FREEMAN, SLove ([id number]) on 11/15/2017 10:17:32 PM Referred By: CARLIE Confirmed By:DR. Jose LLOYD MD
[2017-11-16 05:08] LABS: #Eosinphils 0.1 thou/uL (0.0-0.7); #Lymphocytes 1.6 thou/uL (1.20-3.40); #Monocytes 1.1 thou/uL (0.11-0.59); #Neutrophils 9.3 thou/uL (1.40-6.50); %Basophils 0.4 % (0.0-1.0); %Eosinophils 1.2 % (0.0-10.0); %Lymphocytes 12.8 % (21.0-51.0); %Monocytes 9.4 % (0.0-10.0); %Neutrophils 76.2 % (42.0-75.0); Hemoglobin 12.9 g/dL (14.0-18.0); Mean Corpuscular HGB CONC 33.7 g/dL (32.0-36.0); Mean Corpuscular Hemoglobin 31.5 pg (27.0-31.0); Mean Corpuscular Volume 93.7 fl (80.0-94.0); Mean Platelet Volume 7.6 fL (7.4-10.4); Platelet Count 131 thou/uL (130-400); RBC Distribution Width 12.2 % (11.5-14.5); White Blood Cell (WBC) Count 12.2 thou/uL (4.8-10.8)
[2017-11-16 05:30] LABS: Anion Gap 9 mmol/L (10-20); BUN (Urea Nitrogen) 19 mg/dL (8.4-25.7); Calc. Creatinine Clearance 109 mL/min (70-130); Calcium 9.3 mg/dL (7.8-10.44); Carbon Dioxide 29 mmol/L (23-31); Chloride 103 mmol/L (98-107); Estimated GFR-MDRD 90; Glucose 99 mg/dL (83-110); Potassium 3.9 mmol/L (3.5-5.1); Sodium 137 mmol/L (136-145)
[2017-11-16] MEDS: Levothyroxine Sodium 25 MCG TAB PO SCH (06:06)
[2017-11-16] MEDS: Ciprofloxacin 500 MG TAB PO SCH ×2 (06:06→20:43)
[2017-11-16] MEDS: Levothyroxine Sodium 112 MCG TAB PO SCH (06:06)
--- NOTE | 2017-11-16 06:54 | PDOC.PN ---
- Subjective Encounter Start Date: 11/16/17 Encounter Start Time: 08:45 Subjective: A bit more awake today, but still very sleepy. Reports chronic low back -: pain. No other complaints. - Objective Resuscitation Status: Resuscitation Status DNR:Do Not Resuscitate MAR Reviewed: Yes Vital Signs & Weight: Vital Signs (12 hours) Temp Pulse Resp BP Pulse Ox 11/16/17 03:26 99.1 F 64 18 129/66 95 11/15/17 23:07 98.5 F 64 16 123/63 97 11/15/17 20:01 99.1 F 70 18 11/15/17 19:16 99.1 F 70 18 147/70 H 93 L Weight Admit Weight 213 lb Weight 213 lb Result Diagrams: 11/16/17 04:43 11/16/17 04:43 Additional Labs: Accuchecks 11/16/17 11/15/17 11/15/17 05:54 20:31 16:36 POC Glucose 97 121 H 126 H 11/15/17 10:50 POC Glucose 94 Phys Exam - Physical Examination Constitutional: NAD HEENT: moist MMs Respiratory: no wheezing, no rales, no rhonchi Cardiovascular: RRR 3/6 ANDI Gastrointestinal: soft, non-tender, positive bowel sounds Neurological: non-focal, moves all 4 limbs Psychiatric: normal affect Deviation from normal: Not oriented Dx/Plan (1) Altered mental status Code(s): R41.82 - ALTERED MENTAL STATUS, UNSPECIFIED Status: Acute Comment: Fluctuating, declining over the past few months, likely progressive dementia exacerbated by a UTI (2) TIA (transient ischemic attack) Status: Resolved (3) Alzheimer disease Code(s): G30.9 - ALZHEIMER'S DISEASE, UNSPECIFIED; F02.80 - DEMENTIA IN OTH DISEASES CLASSD ELSWHR W/O BEHAVRL DISTURB Status: Chronic (4) Diabetes Mellitus Type 2 in Nonobese Code(s): E11.9 - TYPE 2 DIABETES MELLITUS WITHOUT COMPLICATIONS Status: Chronic (5) Hypothyroidism Code(s): E03.9 - HYPOTHYROIDISM, UNSPECIFIED Status: Chronic (6) Labile hypertension Code(s): I10 - ESSENTIAL (PRIMARY) HYPERTENSION Status: Chronic Comment: decent control (7) Parkinson's disease Code(s): G20 - PARKINSON'S DISEASE Status: Chronic (8) UTI (urinary tract infection) Status: Acute Comment: UA now with UTI and leukocytosis in blood, developed since admit, patient in diaper no gaitan. Started Cipro and culture pending. Stable for d/c to SNF. (9) Fall Code(s): W19.XXXA - UNSPECIFIED FALL, INITIAL ENCOUNTER Status: Acute Comment: Fell a couple times in past 2 months and not walking since, never had workup, will check X-ray hips and L-spine - Plan cont current plan of care, continue antibiotics, PT/OT D/C to SNF, realizes that she will need to arrange terminal [facility] care -: after that * . - Discharge Day Encounter end time: 09:00
[2017-11-16] MEDS: Enoxaparin Sodium 40 MG/0.4 ML SYRINGE SC SCH (08:33)
[2017-11-16] MEDS: Aspirin 325 mg Enteric Coated Tablet PO SCH (08:33)
[2017-11-16] MEDS: Niacin 500 MG TAB PO SCH (08:33)
[2017-11-16] MEDS: Amlodipine 5 MG TAB PO SCH (08:34)
[2017-11-16] MEDS: FLUoxetine HCl 20 MG CAP PO SCH (08:34)
--- NOTE | 2017-11-16 11:23 | RAD ---
LUMBAR SPINE 3 VIEWS: COMPARISON: 09/14/14. HISTORY: The patient fell. Difficulty walking. FINDINGS: Stable postsurgical changes with fusion at L5-S1. Limited evaluation of the lumbosacral junction due to poor penetration. There is a prosthesis of the L5-S1 level. There appears to be anterolisthesis of L5 upon S1. There are 5 lumbar-type vertebral bodies. No obvious acute fracture. IMPRESSION: Anterolisthesis of L5 upon S1 which cannot be adequately assessed due to poor penetration. Better in terrogation with MRI to assess the overall degree of central canal stenosis. POS: [facility]
--- NOTE | 2017-11-16 11:25 | RAD ---
RIGHT HIP 2 VIEWS: HISTORY: Fall. The patient is no longer walking. COMPARISON: None. FINDINGS: Mild loss of joint space height. Contour of the femoral head is maintained. No fracture. IMPRESSION: No fracture. POS: [facility]
--- NOTE | 2017-11-16 11:26 | RAD ---
FRONTAL RADIOGRAPH OF PELVIS: DATE: 11/16/17. COMPARISON: None. HISTORY: Fall. FINDINGS: Postoperative hardware is seen overlying the lumbosacral junction. There is no widening of the pubic symphysis or the sacroiliac joints. The femoral heads project normally over their respective acetab ulum. No displaced pelvic fracture. Degenerative change of both hips noted. IMPRESSION: No displaced fracture is seen. POS: [facility]
--- NOTE | 2017-11-16 11:27 | RAD ---
TWO VIEWS LEFT HIP: HISTORY: Fall. Pain. The patient is no longer walking. COMPARISON: None. FINDINGS: Mild loss of joint space height. Contour of the femoral head is maintained. No fracture. IMPRESSION: No fracture with regard to the left hip. POS: [facility]
[2017-11-16] MEDS: clonazePAM 0.5 MG TAB PO SCH (20:43)
[2017-11-17] MEDS: Ciprofloxacin 500 MG TAB PO SCH ×2 (04:54→20:53)
[2017-11-17] MEDS: Levothyroxine Sodium 112 MCG TAB PO SCH (04:54)
[2017-11-17] MEDS: Levothyroxine Sodium 25 MCG TAB PO SCH (04:54)
[2017-11-17] MEDS: FLUoxetine HCl 20 MG CAP PO SCH (09:21)
[2017-11-17] MEDS: Amlodipine 5 MG TAB PO SCH (09:21)
[2017-11-17] MEDS: Aspirin 325 mg Enteric Coated Tablet PO SCH (09:21)
[2017-11-17] MEDS: Niacin 500 MG TAB PO SCH (09:23)
[2017-11-17] MEDS: Enoxaparin Sodium 40 MG/0.4 ML SYRINGE SC SCH (09:23)
--- NOTE | 2017-11-17 10:39 | PDOC.PN ---
- Subjective Encounter Start Date: 11/17/17 Encounter Start Time: 07:00 -: old records requested/rev Patient seen and examined for altered mental status. pt is sleepy. No overnight events - Objective Resuscitation Status: Resuscitation Status DNR:Do Not Resuscitate MAR Reviewed: Yes Vital Signs & Weight: Vital Signs (12 hours) Temp Pulse Resp BP BP Pulse Ox 11/17/17 09:21 66 110/55 L 11/17/17 07:00 98.7 F 66 20 110/55 L 96 11/17/17 03:00 98.7 F 70 18 119/54 L 97 11/16/17 23:00 98.6 F 87 20 129/58 L 98 Weight Admit Weight 213 lb Weight 213 lb I&O: 11/16/17 11/17/17 11/18/17 06:59 06:59 06:59 Intake Total 300 Balance 300 Result Diagrams: 11/16/17 04:43 11/16/17 04:43 Additional Labs: Accuchecks 11/17/17 11/16/17 11/16/17 05:58 20:30 16:11 POC Glucose 105 111 H 116 H 11/16/17 10:59 POC Glucose 111 H EKG Reviewed by me: Yes (nsr) Phys Exam - Physical Examination Constitutional: NAD HEENT: PERRLA, moist MMs, sclera anicteric Neck: no JVD, supple Respiratory: no wheezing, no rales, no rhonchi Cardiovascular: RRR, no significant murmur, no rub Gastrointestinal: soft, non-tender, no distention, positive bowel sounds Musculoskeletal: no edema, pulses present Neurological: non-focal Lymphatic: no nodes Psychiatric: normal affect Skin: no rash, normal turgor Dx/Plan (1) Altered mental status Code(s): R41.82 - ALTERED MENTAL STATUS, UNSPECIFIED Status: Acute Comment: Fluctuating, declining over the past few months, likely progressive dementia exacerbated by a UTI (2) Fall Code(s): W19.XXXA - UNSPECIFIED FALL, INITIAL ENCOUNTER Status: Acute Comment: Fell a couple times in past 2 months (3) UTI (urinary tract infection) Status: Acute Comment: on oral cipro (4) Alzheimer disease Code(s): G30.9 - ALZHEIMER'S DISEASE, UNSPECIFIED; F02.80 - DEMENTIA IN OTH DISEASES CLASSD ELSWHR W/O BEHAVRL DISTURB Status: Chronic (5) Diabetes Mellitus Type 2 in Nonobese Code(s): E11.9 - TYPE 2 DIABETES MELLITUS WITHOUT COMPLICATIONS Status: Chronic (6) Hypothyroidism Code(s): E03.9 - HYPOTHYROIDISM, UNSPECIFIED Status: Chronic (7) Parkinson's disease Code(s): G20 - PARKINSON'S DISEASE Status: Chronic (8) Hypertension Code(s): I10 - ESSENTIAL (PRIMARY) HYPERTENSION Status: Chronic (9) Anxiety and depression Code(s): F41.9 - ANXIETY DISORDER, UNSPECIFIED; F32.9 - MAJOR DEPRESSIVE DISORDER, SINGLE EPISODE, UNSPECIFIED Status: Chronic (10) Obesity (BMI 30.0-34.9) Code(s): E66.9 - OBESITY, UNSPECIFIED Status: Chronic (11) Physical deconditioning Code(s): R53.81 - OTHER MALAISE Status: Acute - Plan cont current plan of care, continue antibiotics, PT/OT, social media campaign manager * rehab declined * await Swing bed or SNU placement authorization * can not take care of him * overall medically stable with current treatment * medication reviewed as below * symptomatic treatment. * pt does not have TIA as per neurology Review of Systems - Review of Systems Other: not reliable due to pt is currently sleepy and due to his cognitive status - Medications/Allergies Allergies/Adverse Reactions: Allergies Allergy/AdvReac Type Severity Reaction Status Date / Time ketorolac tromethamine Allergy Anxiety Verified 07/14/14 10:47 [From Toradol] fentanyl AdvReac Verified 07/26/14 18:07 Medications: Current Medications Acetaminophen (Tylenol) 650 mg PO Q4H PRN PRN Reason: Headache/Fever or Pain Acetaminophen (Tylenol) 650 mg VT Q4H PRN PRN Reason: Headache/Fever or Pain Al Hydroxide/Mg Hydroxide (Maalox) 30 ml PO Q6H PRN PRN Reason: Heartburn or Indigestion Amlodipine Besylate (Norvasc) 2.5 mg PO DAILY [facility] Last Admin: 11/17/17 09:21 Dose: 2.5 mg Aspirin (Ecotrin) 325 mg PO DAILY [facility] Last Admin: 11/17/17 09:21 Dose: 325 mg Bisacodyl (Dulcolax) 10 mg PO DAILYPRN PRN PRN Reason: Constipation Calcium Carbonate (Tums) 1,000 mg PO Q4H PRN PRN Reason: Heartburn or Indigestion Ciprofloxacin (Cipro) 500 mg PO 599,1999 [facility] Last Admin: 11/17/17 04:54 Dose: 500 mg Clonazepam (Klonopin) 0.5 mg PO HS [facility] Last Admin: 11/16/17 20:43 Dose: 0.5 mg Dextrose/Water (Dextrose 50%) 25 gm SLOW IVP PRN PRN PRN Reason: Hypoglycemia Enalaprilat (Vasotec) 1.25 mg SLOW IVP Q6H PRN PRN Reason: SBP>170 Enoxaparin Sodium (Lovenox) 40 mg SC 899 [facility] Last Admin: 11/17/17 09:23 Dose: 40 mg Fluoxetine HCl (Prozac) 20 mg PO DAILY [facility] Last Admin: 11/17/17 09:21 Dose: 20 mg Glucagon (Glucagon) 1 mg IM PRN PRN PRN Reason: Hypoglycemia Hydralazine HCl (Apresoline) 10 mg SLOW IVP Q4H PRN PRN Reason: SBP>170 Dextrose/Water (D5w) 1,000 mls @ 0 mls/hr IV .Q0M PRN; As Directed PRN Reason: Hypoglycemia Insulin Human Lispro (Humalog) 0 units SC .MODERATE SLIDING SC PRN PRN Reason: Moderate Correctional Scale Insulin Human Lispro (Humalog) 0 units SC .BEDTIME SLIDING SC PRN PRN Reason: Bedtime Correctional Scale Levothyroxine Sodium (Synthroid) 112 mcg PO 0600 [facility] Last Admin: 11/17/17 04:54 Dose: 112 mcg Levothyroxine Sodium (Synthroid) 25 mcg PO 0600 [facility] Last Admin: 11/17/17 04:54 Dose: 25 mcg Memantine (Namenda) 10 mg PO BID [facility] Last Admin: 11/17/17 09:21 Dose: 10 mg Niacin (Niacin) 250 mg PO DAILY [facility] Last Admin: 11/17/17 09:23 Dose: 250 mg Ondansetron HCl (Zofran) 4 mg IVP Q6H PRN PRN Reason: Nausea/Vomiting Rasagiline (Azilect) 0.5 mg PO DAILY [facility] Last Admin: 11/17/17 09:22 Dose: 0.5 mg Senna (Senokot) 2 tab PO HSPRN PRN PRN Reason: Constipation Sodium Chloride (Flush - Normal Saline) 10 ml IVF Q12HR [facility] Last Admin: 11/17/17 09:24 Dose: 10 ml Sodium Chloride (Flush - Normal Saline) 10 ml IVF PRN PRN PRN Reason: Saline Flush
[2017-11-17 11:01] LABS: #Eosinphils 0.1 thou/uL (0.0-0.7); #Lymphocytes 0.8 thou/uL (1.20-3.40); #Monocytes 0.6 thou/uL (0.11-0.59); #Neutrophils 5.3 thou/uL (1.40-6.50); %Basophils 0.1 % (0.0-1.0); %Eosinophils 1.2 % (0.0-10.0); %Lymphocytes 12.1 % (21.0-51.0); %Monocytes 8.5 % (0.0-10.0); %Neutrophils 78.1 % (42.0-75.0); Hemoglobin 12.3 g/dL (14.0-18.0); Mean Corpuscular HGB CONC 33.6 g/dL (32.0-36.0); Mean Corpuscular Hemoglobin 31.4 pg (27.0-31.0); Mean Corpuscular Volume 93.4 fl (80.0-94.0); Mean Platelet Volume 7.4 fL (7.4-10.4); Platelet Count 125 thou/uL (130-400); RBC Distribution Width 12.3 % (11.5-14.5); Red Blood Cell (RBC) Count 3.91 mill/uL (4.70-6.10); White Blood Cell (WBC) Count 6.8 thou/uL (4.8-10.8)
[2017-11-17 11:29] LABS: Anion Gap 10 mmol/L (10-20); BUN (Urea Nitrogen) 23 mg/dL (8.4-25.7); Calc. Creatinine Clearance 82 mL/min (70-130); Calcium 9.2 mg/dL (7.8-10.44); Carbon Dioxide 26 mmol/L (23-31); Chloride 103 mmol/L (98-107); Estimated GFR-MDRD 65; Glucose 123 mg/dL (83-110); Potassium 3.9 mmol/L (3.5-5.1); Sodium 135 mmol/L (136-145)
[2017-11-17] MEDS: clonazePAM 0.5 MG TAB PO SCH (20:53)
[2017-11-18] MEDS: Levothyroxine Sodium 25 MCG TAB PO SCH ×2 (06:06→06:30)
[2017-11-18] MEDS: Ciprofloxacin 500 MG TAB PO SCH ×3 (06:07→21:11)
[2017-11-18] MEDS: Levothyroxine Sodium 112 MCG TAB PO SCH ×2 (06:07→06:29)
[2017-11-18] MEDS: Niacin 500 MG TAB PO SCH (09:13)
[2017-11-18] MEDS: Amlodipine 5 MG TAB PO SCH (09:14)
[2017-11-18] MEDS: FLUoxetine HCl 20 MG CAP PO SCH (09:15)
[2017-11-18] MEDS: Enoxaparin Sodium 40 MG/0.4 ML SYRINGE SC SCH (09:15)
[2017-11-18] MEDS: Aspirin 325 mg Enteric Coated Tablet PO SCH (09:15)
--- NOTE | 2017-11-18 09:33 | PDOC.PN ---
- Subjective Encounter Start Date: 11/18/17 Encounter Start Time: 07:00 Patient seen and examined for AMS. No overnight events he opens mouth for food when given, but does not want to open eye this morning - Objective Resuscitation Status: Resuscitation Status DNR:Do Not Resuscitate MAR Reviewed: Yes Vital Signs & Weight: Vital Signs (12 hours) Temp Pulse Resp BP BP Pulse Ox 11/18/17 09:14 52 L 118/62 11/18/17 07:00 97.7 F 52 L 20 118/62 96 11/18/17 03:00 97.4 F L 57 L 20 149/67 H 100 11/17/17 23:00 98.0 F 53 L 18 107/57 L 97 Weight Admit Weight 213 lb Weight 213 lb I&O: 11/17/17 11/18/17 11/19/17 06:59 06:59 06:59 Intake Total 300 600 420 Balance 300 600 420 Result Diagrams: 11/17/17 10:52 11/17/17 10:52 Additional Labs: Accuchecks 11/18/17 11/17/17 11/17/17 05:29 21:11 16:39 POC Glucose 104 130 H 110 11/17/17 10:32 POC Glucose 121 H EKG Reviewed by me: Yes (nsr) Phys Exam - Physical Examination Constitutional: NAD HEENT: PERRLA, moist MMs, sclera anicteric Neck: no JVD, supple Respiratory: no wheezing, no rales, no rhonchi Cardiovascular: RRR, no significant murmur, no rub Gastrointestinal: soft, non-tender, no distention, positive bowel sounds Musculoskeletal: no edema, pulses present unable to assess, not cooperative Lymphatic: no nodes Deviation from normal: keeps eye closed Skin: no rash, normal turgor Dx/Plan (1) Altered mental status Code(s): R41.82 - ALTERED MENTAL STATUS, UNSPECIFIED Status: Acute Comment: appears baseline, seems has dementia (2) Fall Code(s): W19.XXXA - UNSPECIFIED FALL, INITIAL ENCOUNTER Status: Acute Comment: Fell a couple times in past 2 months (3) UTI (urinary tract infection) Status: Acute Comment: on oral cipro (4) Alzheimer disease Code(s): G30.9 - ALZHEIMER'S DISEASE, UNSPECIFIED; F02.80 - DEMENTIA IN OTH DISEASES CLASSD ELSWHR W/O BEHAVRL DISTURB Status: Chronic (5) Diabetes Mellitus Type 2 in Nonobese Code(s): E11.9 - TYPE 2 DIABETES MELLITUS WITHOUT COMPLICATIONS Status: Chronic (6) Hypothyroidism Code(s): E03.9 - HYPOTHYROIDISM, UNSPECIFIED Status: Chronic (7) Parkinson's disease Code(s): G20 - PARKINSON'S DISEASE Status: Chronic (8) Hypertension Code(s): I10 - ESSENTIAL (PRIMARY) HYPERTENSION Status: Chronic (9) Anxiety and depression Code(s): F41.9 - ANXIETY DISORDER, UNSPECIFIED; F32.9 - MAJOR DEPRESSIVE DISORDER, SINGLE EPISODE, UNSPECIFIED Status: Chronic (10) Obesity (BMI 30.0-34.9) Code(s): E66.9 - OBESITY, UNSPECIFIED Status: Chronic (11) Physical deconditioning Code(s): R53.81 - OTHER MALAISE Status: Acute - Plan cont current plan of care, continue antibiotics, PT/OT, social welfare clerk * he is stable and already discharged but waiting for placement, rehab declined and now await swing bed vs snu placement * medication reviewed as below * symptomatic treatment * supportive care. Review of Systems - Review of Systems Other: unable to review due to his level of cognitive status and dementia - Medications/Allergies Allergies/Adverse Reactions: Allergies Allergy/AdvReac Type Severity Reaction Status Date / Time ketorolac tromethamine Allergy Anxiety Verified 07/14/14 10:47 [From Toradol] fentanyl AdvReac Verified 07/26/14 18:07 Medications: Current Medications Acetaminophen (Tylenol) 650 mg PO Q4H PRN PRN Reason: Headache/Fever or Pain Acetaminophen (Tylenol) 650 mg [place] Q4H PRN PRN Reason: Headache/Fever or Pain Al Hydroxide/Mg Hydroxide (Maalox) 30 ml PO Q6H PRN PRN Reason: Heartburn or Indigestion Amlodipine Besylate (Norvasc) 2.5 mg PO DAILY [facility] Last Admin: 11/18/17 09:14 Dose: 2.5 mg Aspirin (Ecotrin) 325 mg PO DAILY [facility] Last Admin: 11/18/17 09:15 Dose: 325 mg Atorvastatin Calcium (Lipitor) 10 mg PO [facility] Bisacodyl (Dulcolax) 10 mg PO DAILYPRN PRN PRN Reason: Constipation Calcium Carbonate (Tums) 1,000 mg PO Q4H PRN PRN Reason: Heartburn or Indigestion Ciprofloxacin (Cipro) 500 mg PO 599,1999 [facility] Last Admin: 11/18/17 06:28 Dose: Not Given Clonazepam (Klonopin) 0.5 mg PO HS [facility] Last Admin: 11/17/17 20:53 Dose: 0.5 mg Dextrose/Water (Dextrose 50%) 25 gm SLOW IVP PRN PRN PRN Reason: Hypoglycemia Enalaprilat (Vasotec) 1.25 mg SLOW IVP Q6H PRN PRN Reason: SBP>170 Enoxaparin Sodium (Lovenox) 40 mg SC 09 [facility] Last Admin: 11/18/17 09:15 Dose: 40 mg Fluoxetine HCl (Prozac) 20 mg PO DAILY [facility] Last Admin: 11/18/17 09:15 Dose: 20 mg Glucagon (Glucagon) 1 mg IM PRN PRN PRN Reason: Hypoglycemia Hydralazine HCl (Apresoline) 10 mg SLOW IVP Q4H PRN PRN Reason: SBP>170 Dextrose/Water (D5w) 1,000 mls @ 0 mls/hr IV .Q0M PRN; As Directed PRN Reason: Hypoglycemia Insulin Human Lispro (Humalog) 0 units SC .MODERATE SLIDING SC PRN PRN Reason: Moderate Correctional Scale Insulin Human Lispro (Humalog) 0 units SC .BEDTIME SLIDING SC PRN PRN Reason: Bedtime Correctional Scale Levothyroxine Sodium (Synthroid) 112 mcg PO 0600 [facility] Last Admin: 11/18/17 06:29 Dose: Not Given Levothyroxine Sodium (Synthroid) 25 mcg PO 0600 [facility] Last Admin: 11/18/17 06:30 Dose: Not Given Memantine (Namenda) 10 mg PO BID [facility] Last Admin: 11/18/17 09:14 Dose: 10 mg Niacin (Niacin) 250 mg PO DAILY [facility] Last Admin: 11/18/17 09:13 Dose: 250 mg Ondansetron HCl (Zofran) 4 mg IVP Q6H PRN PRN Reason: Nausea/Vomiting Rasagiline (Azilect) 0.5 mg PO DAILY [facility] Last Admin: 11/18/17 09:13 Dose: 0.5 mg Senna (Senokot) 2 tab PO HSPRN PRN PRN Reason: Constipation Sodium Chloride (Flush - Normal Saline) 10 ml IVF Q12HR [facility] Last Admin: 11/18/17 09:16 Dose: Not Given Sodium Chloride (Flush - Normal Saline) 10 ml IVF PRN PRN PRN Reason: Saline Flush
[2017-11-18] MEDS: clonazePAM 0.5 MG TAB PO SCH (21:11)
[2017-11-18] MEDS: Atorvastatin Calcium 10 MG TAB PO SCH (21:11)
[2017-11-19] MEDS: Ciprofloxacin 500 MG TAB PO SCH ×2 (06:01→20:56)
[2017-11-19] MEDS: Levothyroxine Sodium 25 MCG TAB PO SCH (06:02)
[2017-11-19] MEDS: Levothyroxine Sodium 112 MCG TAB PO SCH (06:02)
[2017-11-19] MEDS: FLUoxetine HCl 20 MG CAP PO SCH (08:10)
[2017-11-19] MEDS: Niacin 500 MG TAB PO SCH (08:10)
[2017-11-19] MEDS: Aspirin 325 mg Enteric Coated Tablet PO SCH (08:10)
[2017-11-19] MEDS: Amlodipine 5 MG TAB PO SCH (08:11)
[2017-11-19] MEDS: Enoxaparin Sodium 40 MG/0.4 ML SYRINGE SC SCH (08:12)
--- NOTE | 2017-11-19 13:12 | PDOC.PN ---
- Subjective Encounter Start Date: 11/19/17 Encounter Start Time: 13:10 Patient is not terribly interactive, but denies any complaints. - Objective Resuscitation Status: Resuscitation Status DNR:Do Not Resuscitate Vital Signs & Weight: Vital Signs (12 hours) Temp Pulse Resp BP BP Pulse Ox 11/19/17 10:50 97.7 F 55 L 16 136/60 99 11/19/17 08:11 49 L 134/64 11/19/17 08:10 97.8 F 49 L 14 11/19/17 07:40 97.8 F 49 L 14 134/64 97 11/19/17 03:56 97.6 F 54 L 18 132/59 L 98 Weight Admit Weight 213 lb Weight 213 lb I&O: 11/18/17 11/19/17 11/20/17 06:59 06:59 06:59 Intake Total 600 1220 120 Balance 600 1220 120 Result Diagrams: 11/17/17 10:52 11/17/17 10:52 Additional Labs: Accuchecks 11/19/17 11/19/17 11/18/17 10:35 05:16 20:41 POC Glucose 104 89 119 H 11/18/17 17:04 POC Glucose 116 H Phys Exam - Physical Examination Constitutional: NAD HEENT: PERRLA Neck: no JVD Respiratory: no wheezing, no rales, clear to auscultation bilateral Cardiovascular: RRR, no significant murmur Gastrointestinal: soft, non-tender, no distention, positive bowel sounds Musculoskeletal: no edema Dx/Plan (1) Altered mental status Code(s): R41.82 - ALTERED MENTAL STATUS, UNSPECIFIED Status: Acute Comment: appears baseline, seems has dementia (2) Physical deconditioning Code(s): R53.81 - OTHER MALAISE Status: Acute (3) UTI (urinary tract infection) Status: Acute Comment: on oral cipro (4) Alzheimer disease Code(s): G30.9 - ALZHEIMER'S DISEASE, UNSPECIFIED; F02.80 - DEMENTIA IN OTH DISEASES CLASSD ELSWHR W/O BEHAVRL DISTURB Status: Chronic (5) Diabetes Mellitus Type 2 in Nonobese Code(s): E11.9 - TYPE 2 DIABETES MELLITUS WITHOUT COMPLICATIONS Status: Chronic (6) Hypertension Code(s): I10 - ESSENTIAL (PRIMARY) HYPERTENSION Status: Chronic - Plan * Doing well overall. Awaiting placement for rehab given his chronic decline exacerbated by the acute decline related to the UTI.
[2017-11-19] MEDS: clonazePAM 0.5 MG TAB PO SCH (20:56)
[2017-11-19] MEDS: Atorvastatin Calcium 10 MG TAB PO SCH (20:56)
[2017-11-20] MEDS: Levothyroxine Sodium 25 MCG TAB PO SCH (05:43)
[2017-11-20] MEDS: Ciprofloxacin 500 MG TAB PO SCH (05:43)
[2017-11-20] MEDS: Levothyroxine Sodium 112 MCG TAB PO SCH (05:43)
[2017-11-20] MEDS: Aspirin 325 mg Enteric Coated Tablet PO SCH (08:43)
[2017-11-20] MEDS: Amlodipine 5 MG TAB PO SCH (08:43)
[2017-11-20] MEDS: FLUoxetine HCl 20 MG CAP PO SCH (08:43)
[2017-11-20] MEDS: Enoxaparin Sodium 40 MG/0.4 ML SYRINGE SC SCH (08:44)
[2017-11-20] MEDS: Niacin 500 MG TAB PO SCH (10:44)
[2017-11-20 11:56] VITALS: BP 130/58; TEMP 97.8
--- NOTE | 2017-11-21 15:01 | DIS ---
DATE OF ADMISSION: 11/12/2017 DATE OF DISCHARGE: 11/20/2017 DISCHARGE DIAGNOSES: 1. Altered mental status. 2. Parkinson disease. 3. Alzheimer's dementia. 4. Physical deconditioning. 5. Diabetes mellitus. 6. Hypertension. 7. Urinary tract infection, resolved. HISTORY: This patient is a 72-year-old male with a history of Parkinson disease and some degree of d ementia which was not fully delineated between Parkinson's dementia or Alzheimer's type. The patient presented via the emergency department with some altered mental status. Apparently, the patient had been having some difficulty with full sleep, likely related to his dementia and Parkinson's. His wi fe gave him a dose of Nyquil in order to try to help with this. The following morning, the patient w as difficult to awaken. He was altered in his mental status, becoming more somnolent and less respon sive. The patient's had him brought to the Emergency Department. The patient's initial workup included a CT scan of the brain and chest x-ray as well as labs which were generally unrevealing. Dent bsequent MRI of the brain and carotid Dopplers were also unremarkable. HOSPITAL COURSE: The patient was admitted. He was seen in consultation by Neurology and the above w orkup initiated. Neurology felt as though the patient may have had a reaction to his Nyquil dosing a nd did not believe the patient actually had a TIA. A subsequent echocardiogram was unremarkable with an ejection fraction of 55%-60%. Repeat chest x-rays were unremarkable. The patient was somewhat i mproved and more alert, but not as interactive and remained more somnolent throughout. He had a repe at chest x-ray as well as x-rays of his hip, lumbar spine and pelvis revealing no pathology to impede his walking. Physical therapy and occupational therapy worked with the patient as possible. Dmitria сергей, however, it was clear that the patient would need to be placed following hospital discharge as his would not be capable of caring for him. Case management was able to ultimately secure place ment at the [facility] and the patient will be discharged there. DISPOSITION: The patient is discharged to the [facility]. He will have activity as hi s condition will tolerate. He will remain on a heart healthy diet and he will have therapy from occu pational and physical therapy. PHYSICAL EXAMINATION: VITAL SIGNS: On the day of discharge, temperature is 97.8, pulse 56, respirations 12, BP 130/58. GENERAL: The patient somewhat awake, but not verbally interactive. HEART: Regular rate and rhythm with no murmurs. LUNGS: Clear to auscultation bilaterally. ABDOMEN: Soft, nontender with positive bowel sounds and no organomegaly. EXTREMITIES: Warm and dry with some modest muscle atrophy. DISCHARGE MEDICATIONS: The patient will be on Klonopin 0.5 mg p.o. at bedtime, aspirin 325 mg every day, Norvasc 2.5 mg every day, atorvastatin 10 mg every day, ciprofloxacin 500 mg b.i.d., levothyroxi ne 0.137 mg every day, fluoxetine 20 mg every day, midodrine 5 mg b.i.d., Azilect 0.5 mg 1 p.o. every day, saw palmetto 160 mg every day, p.o. daily, niacin 250 mg every day, aspirin 325 mg.
== END 2017-11-20 12:38 ==
LOC: ERS 10:30 → 2SE 13:01
PROVIDERS: ADMIT Internal Medicine; ATTEND Internal Medicine
DX: R41.82 Altered mental status, unspecified (principal); G20 Parkinson's disease; F02.80 Dementia in other diseases classified elsewhere, unspecified severity, without behavioral disturbance, psychotic disturbance, mood disturbance, and anxiety; E03.9 Hypothyroidism, unspecified; E78.5 Hyperlipidemia, unspecified; I10 Essential (primary) hypertension; G47.30 Sleep apnea, unspecified; G89.29 Other chronic pain; M54.5 Low back pain; D53.9 Nutritional anemia, unspecified; N39.0 Urinary tract infection, site not specified; E11.40 Type 2 diabetes mellitus with diabetic neuropathy, unspecified; R53.81 Other malaise; E66.9 Obesity, unspecified; Z68.30 Body mass index [BMI] 30.0-30.9, adult; Z79.52 Long term (current) use of systemic steroids; Z79.82 Long term (current) use of aspirin; Z79.899 Other long term (current) drug therapy; Z88.6 Allergy status to analgesic agent; Z91.81 History of falling; Z66 Do not resuscitate
CPT/HCPCS: 51701; 70450; 70551; 71045 ×2; 72100; 72170; 73502 ×2; 80048 ×4; 80061; 81003; 82553; 82962 ×9; 84484 ×2; 85025 ×4; 85610; 85730; 93005 ×2; 93306; 93880; 94760; 96372 ×8; 97110 ×5; 97116; 97139 ×5; 97530 ×8; 99285; G0378 ×2; G8978; G8979; G8981; G8982; S0077; 36415; 36416; 80053; 81015; 84443; 93010; A4216; G8996-GN-CH; G8997-GN-CH; G8998-GN-CH; J1650

== ENCOUNTER 2018-04-25 17:36 | Emergency (ER) | payer MEDICARE ==
[~2018-04-25 17:36] MED LIST: cefTRIAXone\\ROCEPHIN 1 GM VIAL ONE
[2018-04-25] MEDS ORDERED: cefTRIAXone\\ROCEPHIN 2 GM VIAL ONE (18:59)
[2018-04-25 19:17] LABS: #Basophils 0.1 thou/uL (0.0-0.2); #Eosinphils 0.1 thou/uL (0.0-0.7); #Monocytes 0.7 thou/uL (0.11-0.59); #Neutrophils 4.8 thou/uL (1.40-6.50); %Basophils 0.8 % (0.0-1.0); %Eosinophils 1.8 % (0.0-10.0); %Lymphocytes 25.6 % (21.0-51.0); %Monocytes 9.2 % (0.0-10.0); %Neutrophils 62.6 % (42.0-75.0); Hemoglobin 13.3 g/dL (14.0-18.0); Mean Corpuscular HGB CONC 33.2 g/dL (32.0-36.0); Mean Corpuscular Hemoglobin 31.4 pg (27.0-31.0); Mean Corpuscular Volume 94.4 fL (78.0-98.0); Mean Platelet Volume 7.4 fL (7.4-10.4); Platelet Count 175 thou/uL (130-400); RBC Distribution Width 12.4 % (11.5-14.5); Red Blood Cell (RBC) Count 4.25 mill/uL (4.70-6.10); White Blood Cell (WBC) Count 7.7 thou/uL (4.8-10.8)
[2018-04-25 19:35] LABS: ALT (SGPT) Less than 7 U/L (8-55); AST (SGOT) 18 U/L (5-34); Alkaline Phosphatase 91 U/L (40-150); Anion Gap 12 mmol/L (10-20); BUN (Urea Nitrogen) 13 mg/dL (8.4-25.7); Bilirubin, Total 1.3 mg/dL (0.2-1.2); Calc. Creatinine Clearance 0 mL/min (70-130); Calcium 9.4 mg/dL (7.8-10.44); Carbon Dioxide 24 mmol/L (23-31); Chloride 105 mmol/L (98-107); Estimated GFR-MDRD Greater than 90; Globulin 2.6 g/dL (2.4-3.5); Glucose 91 mg/dL (83-110); Potassium 3.8 mmol/L (3.5-5.1); Protein, Total 6.6 g/dL (5.8-8.1); Sodium 137 mmol/L (136-145)
== END 2018-04-25 20:49 | disposition home or self-care (01) ==
LOC: ERS 17:36
DX: N39.0 Urinary tract infection, site not specified (principal); E86.0 Dehydration; I95.9 Hypotension, unspecified; G20 Parkinson's disease; E03.9 Hypothyroidism, unspecified; F43.10 Post-traumatic stress disorder, unspecified; Z79.899 Other long term (current) drug therapy; Z79.82 Long term (current) use of aspirin; E11.9 Type 2 diabetes mellitus without complications
CPT/HCPCS: 36415; 80053; 85025; 96365; J0696